=== PATIENT | female | born 1970 | race Caucasian/White ===

== ENCOUNTER → 2016-11-12 | Outpatient (CLI) | payer OTHER ==
--- NOTE | 2016-12-01 15:21 | REPMRS ---
Patient History The patient states she had a clinical breast exam in 2016. No known family history of cancer. Digital Mammo Screening Bilat: November 12, 2016 - Exam #: [id number] Bilateral CC and MLO view(s) were taken. Technologist: Hattie Dickson, Technologist Prior study comparison: 2015, digital bilateral screening mammo, performed at [facility]. FINDINGS: The breast tissue is extremely dense which could obscure a lesion on mammography. There is no evidence of cancer on this mammogram. No significant changes when compared with prior studies. ASSESSMENT: BI-RADS/ACR category 2 mammogram. Benign finding(s). Recommendation Routine screening mammogram of both breasts in 1 year (for women over age 40). This mammogram was interpreted with the aid of an FDA-approved computer-aided dectection system. Electronically Signed By: Kristian Goldstein MD 12/01/16 [id number]
== END ==
LOC: M RAD 12:32
PROVIDERS: ATTEND Family Medicine
DX: Z12.31 Encounter for screening mammogram for malignant neoplasm of breast (principal)

== ENCOUNTER → 2017-06-23 | Outpatient (CLI) | payer OTHER | LOC: M RAD 07:56 | DX: N39.0 Urinary tract infection, site not specified (principal); B96.20 Unspecified Escherichia coli [E. coli] as the cause of diseases classified elsewhere; M51.36 Other intervertebral disc degeneration, lumbar region | CPT/HCPCS: 74176 ==